=== PATIENT | female | born 1950 | race African-American/Black ===

== ENCOUNTER 2022-11-09 11:42 | Outpatient (CLI) | payer MEDICARE, SELFPAY ==
--- NOTE | ~2022-11-09 | MM_ITS ---
EXAMINATION: MM screening elis BI w avery HISTORY: Screening TECHNIQUE: Craniocaudal and mediolateral oblique 3-D tomosynthesis images were obtained and synthetic 2-D images were generated. CAD analysis was submitted and interpreted. COMPARISON: No prior mammogram is available for comparison at this institution. BREAST PARENCHYMAL COMPOSITION: The breasts are heterogeneously dense, which may obscure small masses . FINDINGS: There is focal asymmetry inferiorly in the left breast on MLO view. There are no suspicious masses, calcifications or architectural distortion in the right breast to suggest malignancy. IMPRESSION: 1. Focal left breast asymmetry inferiorly on MLO view. 2. Comparison outside mammograms recommended. BI-RADS Category 0: Incomplete: Needs additional imaging evaluation. Reviewed, dictated and finalized at location A.
== END 2022-11-09 11:43 | disposition home or self-care (01) ==
PROVIDERS: Visit Provider Family Medicine
DX: Z12.31 Encounter for screening mammogram for malignant neoplasm of breast (principal); R92.8 Other abnormal and inconclusive findings on diagnostic imaging of breast
CPT/HCPCS: 77063; 77067

== ENCOUNTER 2022-12-09 12:26 | Outpatient (CLI) | payer MEDICARE, SELFPAY ==
--- NOTE | ~2022-12-09 | MM_ITS ---
EXAMINATION: MM diagnostic elis LT w avery HISTORY: Left breast asymmetry on screening mammogram TECHNIQUE: Additional 3-D tomosynthesis images of the left breast were performed and synthetic 2-D im ages were generated. CAD analysis was submitted and interpreted. COMPARISON: 11/09/2022, 05/28/2018, 05/27/2017 FINDINGS: There is a return to baseline fibroglandular appearance with spot compression of the left b reast in the area questioned on screening mammogram. IMPRESSION: 1. No mammographic evidence of malignancy. 2. Recommend routine screening mammography in one year. BI-RADS Category 1: Negative Reviewed, dictated and finalized at location A.
== END 2022-12-09 12:27 | disposition home or self-care (01) ==
PROVIDERS: Visit Provider Nurse Practitioner Family
DX: R92.8 Other abnormal and inconclusive findings on diagnostic imaging of breast (principal)
CPT/HCPCS: 77061; 77065; G0279

== ENCOUNTER 2025-05-07 12:02 | Emergency (ER) | payer MEDICARE, SELFPAY ==
--- NOTE | ~2025-05-07 | CT_ITS ---
EXAMINATION: CT lumbar spine wo con COMPARISON: None HISTORY: back/buttock pain after fall TECHNIQUE: Axial images were obtained through the spine without IV contrast. Coronal, sagittal reconstruction images were obtained from the axial views. CT scan performed using dose optimization techniques including the following automated exposure control; adjustment of mA and/or kV; use of iterative reconstruction technique. Automatic exposure control was used to reduce radiation dose. Permanent radiation dose record is archived to PACS. FINDINGS: Remote appearing compression fracture noted of T12 and L1 with loss of height of L1 50%. There is an acute superior endplate fracture of L1, there is abnormal density in the body of L1, underlying pathologic fracture is not excluded. Moderate loss of disc height at T11-12, T12-L1 and L4-5 with moderate canal and foraminal stenosis. Soft tissues unremarkable. Impression: 1. Acute superior endplate fracture of L1 superimposed upon chronic compression fracture. Underlying pathologic lesion suspected. Contrast-enhanced MRI is suggested Reviewed, dictated and finalized at location A. Impression: 1. Acute superior endplate fracture of L1 superimposed upon chronic compression fracture. Underlying pathologic lesion suspected. Contrast-enhanced MRI is sug gested
--- NOTE | ~2025-05-07 | CT_ITS ---
EXAMINATION: CT abdomen pelvis wo con, 05/07/2025 15:10 CDT HISTORY: epigastric/RUQ/RLQ pain after GLF COMPARISON: No comparisons available. TECHNIQUE: CT scan of the abdomen and pelvis was performed without IV contrast. One or more of the following dose reduction techniques were used: automated exposure control, adjustment of the mA and/or kV according to patient size, use of iterative reconstruction technique. Unless otherwise stated, incidental findings do not require dedicated follow up imaging FINDINGS: CT abdomen: LUNG BASES: The lung bases are clear. The visualized portions of the heart and pericardium are unremarkable. LIVER: Pneumobilia throughout the left and right lobes of the liver. SPLEEN: Unremarkable, no splenomegaly. KIDNEYS: Right Kidney: Unremarkable. No calculi. No hydronephrosis. Left Kidney: Unremarkable. No calculi. No hydronephrosis ADRENAL GLANDS: Unremarkable. PANCREAS: Severe pancreatic atrophy. GALLBLADDER/BILIARY: Postcholecystectomy. STOMACH AND ESOPHAGUS: Moderate hiatal hernia. BOWEL/MESENTERY: Moderate fecal content, no colitis or diverticulitis. Appendix normal. Mesentery normal. No dilated small bowel loops. ADENOPATHY/RETROPERITONEUM: No lymphadenopathy. AORTA/VASCULATURE: Normal caliber aorta. FREE FLUID OR FREE AIR: No free fluid.. CT pelvis: SOLID ORGANS/REPRODUCTIVE: Post hysterectomy. No adnexal mass. BLADDER: Within normal limits. OSSEOUS STRUCTURES: No acute osseous abnormality.No suspicious lesions. OVERLYING SOFT TISSUES: Unremarkable. IMPRESSION: 1. No etiology to explain the patient's epigastric pain. Incidental findings above Reviewed, dictated and finalized at location A. IMPRESSION: 1. No etiology to explain the patient's epigastric pain. Incidental findings ab ove
--- NOTE | ~2025-05-07 | CT_ITS ---
EXAMINATION: CT cervical spine wo con COMPARISON: None HISTORY: fall TECHNIQUE: Axial images were obtained through the spine without IV contrast. Coronal, sagittal reconstruction images were obtained from the axial views. CT scan performed using dose optimization techniques including the following automated exposure control; adjustment of mA and/or kV; use of iterative reconstruction technique. Automatic exposure control was used to reduce radiation dose. Permanent radiation dose record is archived to PACS. FINDINGS: Grade 1 anterolisthesis of C3 on C4 and C4-C5, no fracture is identified. Moderate loss of disc height at C5-6. Soft tissues unremarkable. Impression: No acute abnormality. Reviewed, dictated and finalized at location A. Impression: No acute abnormality.
--- NOTE | ~2025-05-07 | CT_ITS ---
EXAMINATION: CT brain yasmine echols, 05/07/2025 15:10 CDT HISTORY: fall COMPARISON: No comparisons available. Technique: Axial images obtained of the brain without contrast. One or more of the following dose reduction techniques were used: automated exposure control, adjustment of the mA and/or kV according to patient size, use of iterative reconstruction technique. Findings: No acute infarct or hemorrhage. No midline shift or mass effect. No extra-axial fluid collections. Mastoid air cells unremarkable. Sinuses and orbits unremarkable. No acute fracture. Right-sided INSURANCE LOSS CONTROL SURVEYOR shunt terminates in the inferior third ventricle with a piece of a second shunt noted which is intracranial in location terminating in the left lateral ventricle, there is no hydrocephalus. Impression: 1.No acute intracranial abnormality. Reviewed, dictated and finalized at location A. Impression: 1.No acute intracranial abnormality.
--- OUTSIDE RECORDS SUMMARY | 2025-05-07 12:04 | XMS_ITS | Clinical Summary ---
Author Organization [facility] Address [address] [place] [id number] Care Team Providers Care Recovery Operator Name Role Phone Isa Wright PUMPER GAGER Primary Care Provider [phone] Allergies Active Allergy Reactions Criticality Noted Date Comments Codeine Chest pressure High 01/10/2010 Chest tightness Medications alendronate (FOSAMAX) 70 MG tablet Take 1 tablet (70 mg total) by mouth every 7 days. 5 Active aspirin EC 81 MG tablet aspirin 81 mg tablet,delaye d release TAKE 1 TABLET BY MOUTH ONCE DAILY Active Cod Liver Oil w/Vit A & D Cap Take 1,000 mg by mouth. Active metFORMIN ER (GLUCOPHAGE-XR) 500 MG 24 hr tablet Take 1 tablet (500 mg total) by mouth daily with breakfast. 5 Active memantine (NAMENDA) 10 MG tablet Take 1 tablet (10 mg total) by mouth 2 (two) times daily. Active melatonin 3 MG tablet Take 1 tablet (3 mg total) by mouth. Active lisinopril (PRINIVIL) 2.5 MG tablet Take 1 tablet (2.5 mg total) by mouth daily. 5 Active TRESIBA FLEXTOUCH 200 UNIT/ML injection (PEN) Inject 12 Units into the skin 2 (two) times daily. 5 Active Glucose Blood (ONETOUCH ULTRA TEST) test strip USE 1 STRIP TO CHECK GLUCOSE THREE TIMES DAILY DIRECTED Active ibuprofen (MOTRIN) 800 MG tablet Take 1 tablet (800 mg total) by mouth every 8 (eight) hours as needed. 5 Active loratadine (CLARITIN) 10 MG tabletIndication s:Allergic rhinitis, unspecified seasonality, unspecified trigger Take 1 tablet (10 mg total) by mouth daily. 90 tablet 3 Active Active Problems No known active problems Encounters Date Type Department Care Team Description 03/02/2025 Results Follow-Up [facility] [address] [place] [address] Isa Wright NP HEMOGLOBIN, GLYCOSYLATED, TSH W/REFLEX, LIPID PANEL, Additional followed-up results: 3 03/01/2025 9:30 AM CDT Laboratory Only [facility] [address] [place] [address] Isa Wright NP 03/01/2025 8:40 AM CDT Office Visit [facility] [address] [place] [phone] Isa Wright NP New Patient (Pt. Here today as a new patient to establish with Isa Wright NP. She was seeing a PCP in [place] through [facility]. She is going to be living at [facility] in [place].); Sleep Problem (Cannot fall asleep. She takes Melatonin- but does not seem like it helps. Daughter states that her mom worries that the family is taking money from her or taking her things, even though they are not. ); Ear Concern (Daughter states she has decreased hearing in both ears. ); Diabetes (Pt. States her sugar was 241 this AM when she woke up. Daughter states it is never that high- she does not think that is correct.) 03/01/2025 Scan [employer] HEALTH INFO SRVCS Scanned, [facility] 03/01/2025 Travel from Last 3 Months Immunizations Immunization Administration Dates Next Due COVID-19 Vaccine (Generic) 10/23/2020 Fluzone High Dose (IIV, triv alent, 0.5mL) 06/08/2024,06/04/2019 Fluzone High Dose - >Age 65 (Prefilled Syringe) 08/25/2022,06/09/2022,08/25/2021,2019 Influenza (Generic) 06/23/2023, 7,06/22/2014,2012 Influenza Adult (Generic) 05/29/2021,05/25/2020, 05/25/2019 PFIZER COVID-19 (12+) MRNA, LNP-S, PF, AIMEE-SUCROSE, 30 MCG/0.3 ML (COMIRNATY) 07/01/2023 Pneumococcal (Pneumovax 23) 11/04/2017, 3 Pneumococcal (Prevnar 13) 09/13/2016 Td, Adsorbed, Preservative F ree, Adult Use, Lf Unspecified 07/24/2019 Zoster (Zostavax) 22370 Unt/0.65Ml 09/22/2016, Family History Medical History Relation Comments Dementia Brother 1 Heart Brother 1 Diabetes Mother Dementia Sister 1 Relation Status Comments Brother 1 Alive Brother 2 Alive Brother 3 Alive Father Mother Sister 1 Alive Sister 2 Alive Sister 3 Alive Sister 4 Alive Social History Tobacco Use Types Packs/Day Years Used Date Smoking Tobacco: Former Cigarettes Passive Smoke Exposure: Past Smokeless Tobacco: Never Tobacco Cessation:Counseling Given: No Alcohol Use Standard Drinks/Week Comments Not Currently 0 (1 standard drink = 0.6 oz pur e alcohol) PHQ-2 Answer Date Recorded Patient Health Questionnaire-2 Score 3 03/01/2025 Comments No Sex and Gender Information Value Date Recorded Sex Assigned at Not on file Legal Sex Female 1:36 PM CDT Gender Identity Not on file Sexual Orientation Not on file Last Filed Vital Signs Vital Sign Reading Time Taken Comments Blood Pressure 108/67 03/01/2025 8:31 AM CDT Pulse 94 03/01/2025 8:31 AM CDT Temperature 36.6 C (97.8 F) 03/01/2025 8:31 AM CDT Respiratory Rate 18 03/01/2025 8:31 AM CDT Oxygen Saturation 98% 03/01/2025 8:31 AM CDT Inhaled Oxygen Concentration - - Weight 64.7 kg (142 lb 9.6 oz) 03/01/2025 8:31 A M CDT Height 158.8 cm (5' 2.5) 03/01/2025 8:31 AM CDT Body Mass Index 25.67 03/01/2025 8:31 AM CDT Plan of Treatment Health Maintenance Due Date Last Done Comments Colorectal Cancer Screening Colonoscopy (10 Years) 1950 Kidney Health Evaluation 1950 Diabetes: Retinopathy Eye Exam 1969 Hepatitis C 1969 RSV Immunization or 60+ Years (1 - Risk 60-74 years 1-dose series) 2011 Annual Medicare Wellness Visit 2016 Dexa Scan (General) 2016 Zoster Vaccines (2 of 3) 11/17/2016 09/22/2016, 08/26 DTaP, Tdap and Td Vaccines (1 - Tdap) 07/25/2019 07/24/2019 Mammogram Screening 05/28/2020 05/28/2018 COVID-19 Vaccine ( season) 2025 06/08/2024, 07/01/2023, 06/09/2022, Additional history exists Hemoglobin A1C 09/01/2025 03/01/2025, 04/2025, 02/20/2024, Additional history exists Lipid Panel 03/01/2026 03/01/2025 Pneumococcal Vaccine: 50+ Years Completed 11/04/2017, 09/13/2016, 06/25/2013 PHQ-2 (Physician [place]) Completed 03/01/2025 Meningococcal B Vaccine Aged Out No l onger eligible based on patient's age to complete this topic Meningococcal Vaccine Aged Out No natasha rosanna eligible based on patient's age to complete this topic RSV Immunizations Under 20 Months Aged Out No longer eligible based on patient's age to complete this topic Procedures Procedure Name Priority Date/Time Associated Diagnosis Comments QUANTIFERON - TB GOLD PLUS, 1T Routine 03/01/2025 9:54 AM CDT CBC W/DIFF AUTOMATED Routine 03/01/2025 9:49 AM CDT Moderate episode of recurrent major depressive disorder (CMS/HCC) HEMOGLOBIN, GLYCOSYLATED Routine 03/01/2025 9:49 AM CDT Type 2 diabetes mellitus without complication, with long-term current use of insulin (CMS/HCC HHS/HCC) COMPREHENSIVE METABOLIC PANEL Routine 03/01/2025 9:48 AM CDT Screening, lipid LIPID PANEL Routine 03/01/2025 9:48 AM CDT Screening, lipid TSH W/REFLEX Routine 03/01/2025 9:48 AM CDT Screening for thyroid disorder COLLECTION VENOUS BLOOD VENIPUNCTURE Routine 03/01/2025 9:40 AM CDT Screening, lipid from Last 3 Months Results * QUANTIFERON - TB GOLD PLUS, 1T (03/01/2025 9:54 AM CDT) Pathologist [facility] TB QUANTIFERON NEGATIVE NEGATIVE Peg [employer] Comment: Negative test result. M. tuberculosis complex infection unlikely. NIL (TB) 0.09 IU/mL [facility] [employer] [facility] MITOGEN NIL 8.46 IU/mL [facility] [employer] [facility] TB1 AG MINUS NIL 0.00 IU/mL [facility] TB2 AG MINUS NIL 0.01 IU/mL [facility] Comment: The Nil tube value reflects the background interferon gamma immune response of the patient's blood sample. This value has been subtracted from the patient's displayed TB and Mitogen results. Lower than expected results with the Mitogen tube prevent false-negative Quantiferon readings by detecting a patient with a potential immune suppressive condition and/or suboptimal pre-analytical specimen handling. The TB1 Antigen tube is coated with the M. tuberculosis-specific antigens designed to elicit responses from TB antigen primed CD4+ helper T-lymphocytes. The TB2 Antigen tube is coated with the M. tuberculosis-specific antigens designed to elicit responses from TB antigen primed CD4+ helper and CD8+ cytotoxic T-lymphocytes. For additional information, please refer to https://education.24/7 Card.e-volo/faq/YZC690 (This link is being provided for informational/ educational purposes only.) 03/01/2025 9:54 AM CDT 03/02/2025 10:42 AM CDT Narrative Resulting Agency Comment Performing Organization Information: Site ID: [id number] Name: [facility] Address: [address] [address] Director: Jefry Alcazar MD Isa Wright NP LABORATORY Final Result [facility] [id number] [facility] [address], * (ABNORMAL) HEMOGLOBIN, GLYCOSYLATED (03/01/2025 9:49 AM CDT) HGB A1C 7.2(H) 4.5 - 6.2 % 03/01/2025 10:48 PM CDT [facility] ESTIMATED AVG GLUCOSE 160(H) 74 - 106 MG/DL 03/01/2025 10:48 PM CDT [facility] 03/01/2025 9:49 AM CDT Isa Wright NP LABORATORY Final Result [facility] [address] [place] [address], * (ABNORMAL) CBC W/DIFF AUTOMATED (03/01/2025 9:49 AM CDT) WBC 10.71 4.00 - 10.80 x10'3/uL 03/01/2025 10:11 PM CDT [facility] RBC 5.22 4.10 - 5.40 x10'6/uL 03/01/2025 10:11 PM CDT [facility] HGB 12.7 12.0 - 16.0 G/DL 03/01/2025 10:11 PM CDT [facility] HCT 40.2 36.0 - 47.0 % 03/01/2025 10:11 PM CDT [facility] MCV 77.0(L) 78.0 - 100.0 FL 03/01/2025 10:11 PM CDT [facility] MCH 24.3(L) 27.0 - 31.0 PG 03/01/2025 10:11 PM CDT [facility] MCHC 31.6(L) 33.0 - 36.0 G/DL 03/01/2025 10:11 PM CDT [facility] RDW 15.1(H) 11.5 - 14.5 % 03/01/2025 10:11 PM CDT [facility] PLT 300 150 - 350 x10'3/uL 03/01/2025 10:11 PM CDT [facility] MPV 9.9 7.4 - 10.4 FL 03/01/2025 10:11 PM CDT [facility] IMMATURE GRANS % 0.2 % 03/01/20 10:12 PM CDT [facility] NEUTROPHILS % 49.7 % 03/01/2025 10:12 PM CDT [facility] EOSINOPHILS % 1.7 % 03/01/2025 10:12 PM CDT [facility] BASOPHILS % 0.5 % 03/01/2025 10:12 PM CDT [facility] LYMPHOCYTES % 42.4 % 03/01/2025 10:12 PM CDT [facility] MONOCYTES % 5.5 % 03/01/2025 10:12 PM CDT [facility] ABS. IMMATURE GRANULOCYTES 0.02 0.00 - 0.03 x10'3/uL 03/01/2025 10:12 PM CDT [facility] ABS. NEUTROPHILS 5.33 1.60 - 8.30 x10'3/uL 03/01/2025 10:12 PM CDT [facility] ABS. EOSINOPHILS 0.18 0.00 - 0.40 x10'3/uL 03/01/2025 10:12 PM CDT [facility] ABS. BASOPHILS 0.05 0.00 - 0.20 x10'3/uL 03/01/2025 10:12 PM CDT [facility] ABS. LYMPHOCYTES 4.54 0.80 - 4.70 x10'3/uL 03/01/2025 10:12 PM CDT [facility] ABS. MONOCYTES 0.59 0.00 - 1.50 x10'3/uL 03/01/2025 10:12 PM CDT [facility] RBC MORPHOLOGY ABNORMAL 03/01/2025 10:12 PM CDT [facility] REACTIVE LYMPH INCREASED 03/01/2025 10:12 PM CDT [facility] PLT MORPH. NORMAL 03/01/2025 10:12 PM CDT [facility] PLT EST. NORMAL x10'3/uL 03/01/2025 10:12 PM CDT [facility] MICRO 1+ 03/01/2025 10:12 PM CDT [facility] POIKLO 1+ 03/01/2025 10:12 PM CDT [facility] TARGET CELLS 1+ 03/01/2025 10:12 PM CDT [facility] DIFFERENTIAL TYPE AUTO-DIFF VERIFIED BY BLOOD SMEAR SCAN. 03/01/2025 10:12 PM CDT [facility] 03/01/2025 9:49 AM CDT us Isa Wright NP LABORATORY Final Result Performing Organization Address [facility]/ZIP Co de Phone Number [facility] [address] [place] [address], [place] [phone] * TSH W/REFLEX (03/01/2025 9:48 AM CDT) TSH 1.281 0.358 - 3.740 uIU/ML 03/02/2025 12:33 PM CDT [facility] 03/01/2025 9:48 AM CDT us Isa Wright NP LABORATORY Final Result Performing Organization Address City/[facility]/ZIP Co de Phone Number [facility] [address] [place] [address], * (ABNORMAL) COMPREHENSIVE METABOLIC PANEL (03/01/2025 9:48 AM CDT) [facility] SODIUM S/P/B 140 136 - 145 MMOL/L 03/02/2025 12:33 PM CDT -[facility] POTASSIUM S/P/B 4.7 3.5 - 5.1 MMOL/L 03/02/2025 12:33 PM CDT -[facility] CHLORIDE S/P/B 102 98 - 107 MMOL/L 03/02/2025 12:33 PM CDT -[facility] CO2 27.8 21 - 32 MMOL/L 03/02/2025 12:33 PM CDT MG-[facility] GLUCOSE 119(H) 70 - 99 MG/DL 03/02/2025 12:33 PM CDT -[facility] BUN 18 7 - 18 MG/DL 03/02/2025 12:33 PM CDT -[facility] CREATININE S/P/B 0.72 0.55 - 1.02 MG/DL 03/02/2025 12:33 PM CDT -[facility] CALCIUM S/P/B 10.1 8.4 - 10.5 MG/DL 03/02/2025 12:33 PM CDT -[facility] BILIRUBIN TOTAL S/P/B 0.3 0.2 - 1.0 MG/DL 03/02/2025 12:33 PM CDT -[facility] ALKALINE PHOSPHATASE S/P/B 61 55 - 142 U/L 03/02/2025 12:33 PM CDT -[facility] AST 19 15 - 37 U/L 03/02/2025 12:33 PM CDT -[facility] ALT 36 14 - 59 U/L 03/02/2025 12:33 PM CDT -[facility] TOTAL PROTEIN S/P/B 7.2 6.4 - 8.2 G/DL 03/02/2025 12:33 PM CDT [facility] ALBUMIN S/P/B 3.9 3.4 - 5.0 G/DL 03/02/2025 12:33 PM CDT [facility] ANION GAP 10.2 5 - 15 MMOL/L 03/02/2025 12:33 PM CDT [facility] Comment:REFERENCE RANGE NOT ESTABLISHED OSMOLALITY (CALC) 293 MOSM/KG 025 12:33 PM CDT [facility] Comment:REFERENCE RANGE NOT ESTABLISHED GFR ESTIMATE 88(L) >90 ML/MIN/1. 73 M2 03/02/2025 12:33 PM CDT [facility] GFR NOTES GFR REFERENCE S: 03/02/2025 12:33 PM CDT [facility] Comment: THE ESTIMATED GFR IS CALCULATED USING THE 2020 CKD-EPI EQUATION. THE FOLLOWING CATEGORIES FOR GRADING RENAL FUNCTION ARE RECOMMENDED BY THE INTERNATIONAL SOCIETY OF NEPHROLOGY (KDIGO 2012 CLINICAL PRACTICE GUIDELINE). G1,NORMAL OR HIGH: >89 ml/min/1.73 m2 G2,MILDLY DECREASED: 60-89 ml/min/1.73 m2 G3A,MILDLY TO MODERATELY DECREASED: 45-59 ml/min/1.73 m2 G3B,MODERATELY TO SEVERELY DECREASED: 30-44 ml/min/1.73 m2 G4,SEVERELY DECREASED: 15-29 ml/min/1.73 m2 G5,KIDNEY FAILURE: <15 ml/min/1.73 m2 03/01/2025 9:48 AM CDT us Isa Wright NP LABORATORY Final Result [facility] [place] [address] [place] [address], * (ABNORMAL) LIPID PANEL (03/01/2025 9:48 AM CDT) CHOLESTEROL 200(H) <200 MG/DL 03/02/2025 12:33 PM CDT [facility] TRIGLYCERIDES 63 <150 MG/DL 03/02/2025 12:33 PM CDT [facility] HDL 82 >40 MG/DL 03/02/2025 12:33 PM CDT [facility] LDL-C 105(H) <100 MG/DL 03/02/2025 12:33 PM CDT [facility] VLDL CALCULATION 13 5 - 28 MG/DL 03/02/2025 12:33 PM CDT [facility] CHOL/HDL RATIO 2.4 0.0 - 4.0 03/02/2025 12:33 PM CDT [facility] LDL/HDL 1.3 0.41 - 2.13 03/02/2025 12:33 PM CDT [facility] NON HDL CHOLESTEROL 118 <140 MG/DL 03/02/2025 12:33 PM CDT [facility] 03/01/2025 9:48 AM CDT us Isa Wright NP LABORATORY Final Result [facility] [address] [place] [address], [place] [phone] from Last 3 Months Insurance [employer] Care Teams Recovery Operator Relationship Specialty Start Date End Date Isa Wright, PUMPER GAGER [address] [place] [address] PCP - General Nurse Practitioner Family 02/22/25
--- OUTSIDE RECORDS SUMMARY | 2025-05-07 12:04 | XMS_ITS | Clinical Summary ---
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 mL/min/1.73m2 Moderately to severely decreased 30 - 44 mL/min/1.73m2 Severely decreased 15 - 29 mL/min/1.73m2 Kidney Failure < 15 mL/min/1.73m2 *Relative to young adult level Estimated glomerular filtration rate is determined by the 2020 CKD-EPI equation recommended by the National Kidney Foundation (A Unifying Approach to GFR Estimation: Recommendations of the NKF-ASK Task Force on Reassessing the Inclusion of Race in Diagnosing Kidney Disease, JASN 2020). The CKD-EPI equation should not be used for patients with unstable renal function and has not been validated in children and those over 70. Current interpretive data was last reviewed 2021. Blood 09/02/2024 9:00 AM LINUX UNIX ENGINEER 09/02/2024 4:22 PM LINUX UNIX ENGINEER us Serafin Bernstein MD LAB BLOOD ORDERABLES Final Result CATERINA RAPHAEL [address] Department [place] [address] * Lipid panel (09/02/2024 9:00 AM LINUX UNIX ENGINEER) Cholesterol 176 30 - 199 mg/dL Comment: Interpretive Data Ages < or = 19 years Acceptable: <170 mg/dL Borderline high: 170-199 mg/dL High: >or= 200 mg/dL Ages > or = 20 years Desirable: <200 mg/dL Borderline high: 200-239 mg/dL High: >or= 240 mg/dL Literature References: 1. Expert Panel on Integrated Guidelines for Cardiovascular Health and Risk Reduction in Children and Adolescents. Pediatrics 2011;128:S213 2. NCEP Expert Panel. Circulation 2004;110:227 Current Interpretive Data was last revised on 2018. Triglycerides 56 <=149 mg/dL CATERINA RAPHAEL Comment: Interpretive Data Ages < or = 9 years Acceptable: <75 mg/dL Borderline high: 75-99 mg/dL High: >or= 100 mg/dL Ages 10 to 20 years Acceptable: <90 mg/dL Borderline high: 90-129 mg/dL High: >or= 130 mg/dL Ages > or = 20 years Desirable: <150 mg/dL Borderline high: 150-199 mg/dL High: 200-499 mg/dL Very high: >or= 499 mg/dL Literature References: 1. Expert Panel on Integrated Guidelines for Cardiovascular Health and Risk Reduction in Children and Adolescents. Pediatrics 2011;128:S213 2. NCEP Expert Panel. Circulation 2004;110:227 Current Interpretive Data was last revised on 2018. HDL 66 >=40 mg/dL CATERINA Comment: Interpretive Data Ages < or = 19 years Acceptable: >45 mg/dL Borderline low: 40-45 mg/dL Low: <40 mg/dL Ages > or = 20 years Desirable: >or= 60 mg/dL Low: <40 mg/dL Literature References: 1. Expert Panel on Integrated Guidelines for Cardiovascular Health and Risk Reduction in Children and Adolescents. Pediatrics 2011;128:S213 2. NCEP Expert Panel. Circulation 2004;110:227 Current Interpretive Data was last revised on 2018. LDL, calculated 99 <=129 mg/dL CATERINA Comment: Interpretive Data Ages < or = 19 years Acceptable: <110 mg/dL Borderline high: 110-129 mg/dL High: >or= 130 mg/dL Ages > or = 20 years Optimal: <100 mg/dL Near optimal: 100-129 mg/dL Borderline high: 130-159 mg/dL High: >160 mg/dL Calculated using the Hank LDL-C estimating equation. This equation was implemented on 2024. Prior to this date LDL-C was estimated using the Friedewald equation. Literature References: 1. Expert Panel on Integrated Guidelines for Cardiovascular Health and Risk Reduction in Children and Adolescents. Pediatrics 2011;128:S213 2. NCEP Expert Panel. Circulation 2004;110:227 3. Hank Das. RODOLFO Cardiol. 2020 December 23;5(5):540-548. doi: 10.1001/jamacardio.2020.0013 Current Interpretive Data was last revised on 2024. Non-HDL Cholesterol 110 mg/dL CATERINA Comment: Interpretive Data Ages < or = 19 years Acceptable: <120 mg/dL Borderline high: 120-144 mg/dL High: >145 mg/dL Ages > or = 20 years When triglycerides are >200 mg/dL, Non-HDL cholesterol is a secondary target of therapy with treatment goals that are 30 mg/dL greater than the LDL cholesterol target. Literature References: 1. Expert Panel on Integrated Guidelines for Cardiovascular Health and Risk Reduction in Children and Adolescents. Pediatrics 2011;128:S213 2. NCEP Expert Panel. Circulation 2004;110:227 Current Interpretive Data was last revised on 2018. Chol/HDL ratio 3 [facility] Blood 09/02/2024 9:00 AM LINUX UNIX ENGINEER 09/02/2024 4:12 PM LINUX UNIX ENGINEER Result [facility] Serafin Bernstein MD LAB BLOOD ORDERABLES Final Result CATERINA [address] Department [place] [address] * HM MAMMOGRAPHY (12/09/2022) Mammography Normal [facility] Provider HEALTH MAINTENANCE Final Result * Diabetic Eye Exam (11/17/2021) Result [facility] Provider HEALTH MAINTENANCE Final Result * Hepatitis C antibody (10/31/2021 3:21 PM LINUX UNIX ENGINEER) Hep C Ab Nonreactive Nonreactive CATERINA Comment: Interpretive Data Nonreactive: Antibodies to HCV not detected. Does NOT exclude the possibility of recent exposure to HCV. Equivocal: Equivocal for HCV antibodies. Supplemental molecular testing will be automatically performed to determine infection status in accordance with current CDC screening recommendations. Reactive: Positive for HCV antibodies. This may represent current or past HCV infection. Supplemental molecular testing will be automatically performed to determine current infection status in accordance with current CDC screening recommendations. Interpretive data was last revised on 2019. Blood 10/31/2021 3:21 PM LINUX UNIX ENGINEER 10/31/2021 6:57 PM LINUX UNIX ENGINEER Serafin Bernstein MD LAB MICROBIOLOGY - GENERAL ORDERABLES Final Result Performing Organization Address City/State/ZIP Co va Phone Number CATERINA [id number] [facility] Department [place] [address] * COLONOSCOPY REPORT (09/03/2016) Anatomical Region Laterality Modality Other Narrative 09/03/2016 Ordered by an unspecified provider. Historical Provider GI PROCEDURE ORDERABLES F inal Result * BONE MINERAL DENSITY (07/02/2013) Anatomical Region Laterality Modality Radiographic Zoe ging Narrative 07/02/2013 Ordered by an unspecified provider. Historical Provider IMG DXA PROCEDURES Final Result from Last 3 Months or Most Recently Relevant to Health Maintenance Insurance [facility] Athletes' PerformanceRA [facility] Athletes' Performance [facility] Advance Directives For more information, please contact: [phone] Documents on File Type Date Recorded Patient Wharf Attendant Expl anation Power of Hand Spring Former 12/26/2022 9:09 AM Care Teams Behavioral Health Director Relationship Specialty Start Date End Date No, Physician 03/23/20
--- OUTSIDE RECORDS SUMMARY | 2025-05-07 12:04 | XMS_ITS | Clinical Summary ---
Author Organization [facility] [employer] Address [address] [place] [address] Care Team Providers Care Fusion Analyst Name Role Phone Serafin Bernstein MD Primary Care Provider [phone] Source Comments [facility],non-owned Affiliates and Associated Physician Practices is amultiple site organization consisting of ambulatory clinics and hospital sitesin [place], [place], [place] and [place]. This disclosure is being madepursuant to the Care Everywhere program and may not contain all information available regarding this patient. Last updated 18.[facility] [employer] Allergies Active Allergy Reactions Criticality Noted Date Comments Codeine 01/10/2010 Chest tightness Medications * Be aware that medications may not be up to date on this document. Alwaysverify current medications with the patient. glimepiride (AMARYL) 2 MG tablet Take 2 mg by mouth daily with breakfast. Active aspirin EC (Ecotrin) 81 MG tablet aspirin 81 mg tablet,delayed release TAKE 1 TABLET BY MOUTH ONCE DAILY 0 Active lisinopril (Prinivil; Zestril) 2.5 MG tablet once daily 0 Active alendronate (Fosamax) 70 MG tablet TAKE 1 TABLET BY MOUTH EVERY 7 DAYS. TAKE IN THE MORNING WITH A FULL GLASS OF WATER, ON AN EMPTY STOMACH AND DO NOT TAKE WITH ANYTHING ELSE BY MOUTH OR LIE DOWN FOR THE NEXT 30 MINUTES. 3 Active metFORMIN ER 24hr (Glucophage XR) 500 MG tablet Take 1 (one) tablet by mouth daily with breakfast 3 Active insulin aspart (NovoLOG) FlexPen Inject 12 (twelve) Units subcutaneously 0 Active insulin degludec (Tresiba FlexTouch) 200 UNIT/ML pen INJECT 10 UNITS SUBCUTANEOUSLY TWICE DAILY AFTER BREAKFAST AND DINNER 3 Active Tresiba FlexTouch 200 UNIT/ML pen INJECT 10 UNITS SUBCUTANEOUSLY TWICE DAILY AFTER BREAKFAST AND DINNER 3 Active blood glucose (Kroger Blood Glucose Test) test strip For daily blood glucose at-home testing 1ce daily. E11.65 2 Active Blood Glucose Monitoring Suppl (GlucTicketbudm Blood Glucose Monitor) SHANTANU For home glucose monitoring. E11.65 2 Active melatonin 3 MG tablet Take 1 (one) tablet by mouth at bedtime Active Cod Liver Oil 1000 MG Take 1,000 mg by mouth Active memantine (Namenda) 10 MG tablet Take 1 (one) tablet by mouth 2 times daily 180 tablet 3 4 Active citalopram (CeleXA) 20 MG tablet Take 1 (one) tablet by mouth once daily 4 Active QUEtiapine (SEROquel) 25 MG tablet Take 0.5 (one-half) tablet by mouth at bedtime 15 tablet 2 5 Active Active Problems Problem Noted Date Diagnosed Date Diabetes mellitus type II, c ontrolled, with no complications 01/10/2010 Lymphoma in remission 01/10/2010 HSV-1 infection 01/10/2010 Encounters Date Type Department Care Team Description 03/14/2025 11:00 AM CDT Office Visit [address] [place] [id number] Phil Garcia MD 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 (FLUAD QUADRIVALENT; 65Y+) (AIIV4) 05/29/2021 INFLUENZA VACCINE, HIGH-DOSE , QUADR. (FLUZONE HIGH-DOSE QUADRIVALENT; 65Y+), 0.7 ML (HD-IIV4) 05/27/2020 Family History Medical History Relation Name Comments CAD (Coronary Artery Disease) Brother 1 antonino Diabetes Brother 1 antonino CAD (Coronary Artery Disease) Brother 2 conrado Diabetes Brother 2 conrado CAD (Coronary Artery Disease) Brother 3 caroline Diabetes Brother 3 caroline Arthritis - Osteo Sister 2 charissa Seizures Sister 5 glinder Diabetes Sister 6 gloristine Relation Name Status Comments Brother 1 antonino Alive Brother 2 conrado Alive Brother 3 caroline Alive Father Alive Mother (Age 82) Sister 1 Gloristine Alive Sister 2 charissa Alive Sister 3 Glinder Alive Sister 4 yair Alive Sister 5 glinder Sister 6 gloristine Social History Tobacco Use Types Packs/Day Years Used Date Smoking Tobacco: Former Alcohol Use Standard Drinks/Week Comments No 0 (1 standard drink = 0.6 oz pur e alcohol) Comments No Sex and Gender Information Value Date Recorded Sex Assigned at Not on file Legal Sex Female 6:17 AM KNITTED GARMENT FINISHER Gender Identity Not on file Sexual Orientation Not on file Last Filed Vital Signs Vital Sign Reading Time Taken Comments Blood Pressure 126/82 03/14/2025 11:02 AM CDT Pulse 96 09/02/2024 11:29 AM KNITTED GARMENT FINISHER Temperature 36.2 C (97.2 F) 02/25/2024 9:17 AM CDT Respiratory Rate 18 08/04/2014 3:48 PM KNITTED GARMENT FINISHER Oxygen Saturation 96% 09/02/2024 11:29 AM KNITTED GARMENT FINISHER Inhaled Oxygen Concentration - - Weight 62.1 kg (137 lb) 03/14/2025 11:02 AM CDT Height 160 cm (5' 3) 09/02/2024 11:29 AM KNITTED GARMENT FINISHER Body Mass Index 24.27 09/02/2024 11:29 AM KNITTED GARMENT FINISHER Plan of Treatment Upcoming Encounters Date Type Department Care Team (Late st Contact Info) Description 09/16/2025 11:00 AM KNITTED GARMENT FINISHER Office Visit [facility] [address] [place] [address] Phil Garcia MD [address] [place] [address] Health Maintenance Due Date Last Done Comments COLOGUARD (AGES 45-75) - COLON CA SCREENING [address] COLONOGRAPHY - COLON CA SCREENING 1950 FIT - COLON CA SCREENING 1950 FLEX SIG - COLON CA SCREENING 1950 HEPATITIS C SCREENING 03/16/1969 DTAP/TDAP/TD VACCINES (1 - Tdap) 1970 PNEUMOCOCCAL VACCINE 50+ (1 of 2 - PCV) 1970 DIABETES-STATIN 1991 ZOSTER VACCINE (1 of 2) 2001 Respiratory Syncytial Virus (RSV) Vaccine Pt: or over 60 yrs (1 - Risk 60-74 years 1-dose series) 2011 COLONOSCOPY - COLON CA SCREENING 08/25/2018 08/25/2008 Colorectal Cancer Screening 08/25/2018 DIABETES RETINOPATHY SCREENING 05/27/2020 DIABETES-FOOT EXAM WITH MONOFILAMENT 05/27/2020 MAMMOGRAM 05/28/2020 05/28/2018, 10/2016, 06/27/2016, Additional history exists DEPRESSION SCREENING 08/25/2024 DIABETES - URINE PROTEIN SCREENING 08/25/2024 MEDICARE AWV CALENDAR YEAR 2024 COVID-19 VACCINE ( season) 2025 06/08/2021, 11/08/2020, 10/17/2020 INFLUENZA VACCINE (#1) 2025 , 06/23/2023, 05/29/2021, Additional history exists DIABETES-HGB A1C 09/01/2025 03/01/2025, 04/2025, 02/20/2024, Additional history exists DIABETES-SERUM CREATININE 03/01/20262024, 03/01/2025, 06/16/2023, Additional history exists BONE DENSITY TESTING Completed 07/02/2013 HEPATITIS B VACCINE Aged Out No longe r eligible based on patient's age to complete this topic HIB VACCINE Aged Out No longer eligi ble based on patient's age to complete this topic HPV VACCINE Aged Out No longer eligi ble based on patient's age to complete this topic MENINGOCOCCAL (Group B) VACCINE SHARED DECISION-MAKING Aged Out No longer eligible based on patient's age to complete this topic MENINGOCOCCAL GROUPS A/C/Y/W VACCINE Aged Out No longer eligible based on patient's age to complete this topic Procedures Procedure Name Priority Date/Time Associated Diagnosis Comments CREATININE - POCT INTERFACED Routine 06/16/2023 11:25 AM CDT HEMOGLOBIN A1C Routine 01/16/2010 8:33 AM CDT Diabetes Mellitus Type II, Controlled, with no Complications from Last 3 Months or Most Recently Relevant to Health Maintenance Results * (ABNORMAL) CREATININE - POCT INTERFACED (06/16/2023 11:25 AM CDT) Creatinine POCT 0.49(L) 0.70 - 1.20 mg/dL 06/16/2023 12:00 PM CDT [facility] eGFR 100 >=90 mL/min/1.7 3 m2 06/16/2023 12:00 PM CDT [facility] Blood BLOOD SPECIMEN / Unknown 06/16/2023 11:25 AM CDT 06/16/2023 12:00 PM CDT us Phil Garcia MD LAB - POINT OF CARE ORDERABL ES Final Result Performing Organization Address City/[facility]/ZIP Co de Phone Number [facility] [address] [phone] * (ABNORMAL) HEMOGLOBIN A1C (01/16/2010 8:33 AM CDT) Hemoglobin A1c 6.7(H) 4.8 - 5.6 % [facility] INSURANCE BILL Comment: Increased risk for diabetes: 5.7 - 6.4 Diabetes: >6.4 Glycemic control for adults with diabetes: <7.0 BLOOD SPECIMEN / Unknown 01/16/2010 8:33 AM CDT 01/16/2010 8:39 PM CDT Narrative Resulting Agency Comment [facility] [address] [phone] us Jony Franklin MD LAB - CHEMISTRY ORDERABLES F inal Result Performing Organization Address City/[facility]/ZIP Co de Phone Number [facility] INSURANCE BILL [address] [place] [address] from Last 3 Months or Most Recently Relevant to Health Maintenance Insurance AET[employer] AETNA MEDICARE [facility] Care Teams Fusion Analyst Relationship Specialty Start Date End Date Serafin Bernstein MD [address] [place] [address] PCP - General Family Medicine 08/15/23
--- OUTSIDE RECORDS SUMMARY | 2025-05-07 12:04 | XMS_ITS ---
Author Organization [facility] Address [address] [place] [address] Care Team Providers Care Professor Of Physical Education Name Role Phone Serafin Bernstein MD Primary Care Provider [phone] Active Problems Problem Noted Date Diagnosed Date Diabetes mellitus type II, c ontrolled, with no complications 01/10/2010 Lymphoma in remission 01/10/2010 HSV-1 infection 01/10/2010 Current Treatment and Therapy Plans No current plan information found. Past Treatment and Therapy Plans No past plan information found. Lifetime Dose Tracking * Chemical Lifetime Dose Automatic Entry Manual Entr y Dose Length Product 1,539 mGy-cm 1,539 mGy-cm 0 mGy-cm
--- OUTSIDE RECORDS SUMMARY | 2025-05-07 12:04 | XMS_ITS ---
Author Organization [facility] Address [address] [place] [address] Care Team Providers Care Specialized Developer Name Role Phone No, Physician Unavailable Active Problems Problem Noted Date Diagnosed Date [...] is actually going to be going to [place] to stay with her sister for possibly up to 4-5 months. Daughter states patient's sister is prepared to take care of her. Patient continues on Namenda Assessment & Plan (09/05/2023 10:21 AM JAVA DEVELOPER ARCHITECT): Patient continues to have difficulty sleeping. Daughter [...] (05/25/2020): Added automatically from request for surgery [id number] Assessment & Plan (02/20/2024 8:48 AM CDT): Reviewed screenings recommended. She will do mammogram when she gets back from visiting her sister. Does not wish to have any vaccinations today. Labs ordered today Assessment & Plan (11/02/2021 5:47 PM JAVA DEVELOPER ARCHITECT): A initial Medicare Annual Wellness Visit has [...] Hyperlipidemia associated with type 2 diabetes vijay penaellen 05/24/2020 Assessment & Plan (02/20/2024 8:47 AM CDT): Lipid abnormalities are stable, reviewed previous lipid [facility] in [facility]. Patient is not a statin therapy [...] 09/19/2017 Assessment & Plan (09/05/2023 10:18 AM JAVA DEVELOPER ARCHITECT): Worsening. Will increase citalopram to 20 mg [...] weeks. Assessment & Plan (09/19/2017 5:17 PM JAVA DEVELOPER ARCHITECT): Psychological condition is worsening. Continue current treatment [...] recheck hemoglobin A1c today. 6.. She has Adzillayle CGM. 7. Continues on Tresiba 10 units [...] hyperglycemia. Assessment & Plan (09/19/2017 5:15 PM JAVA DEVELOPER ARCHITECT): Diabetes is unchanged. Continue current treatment regimen. [...] no longer sees Oncology HSV-1 infection 01/10/2010 Current Treatment and Therapy Plans No current plan information found. Past Treatment and Therapy Plans No past plan information found. Lifetime Dose Tracking * Chemical Lifetime Dose Automatic Entry Manual Entr y DLP 779 mGycm 779 mGycm 0 mGycm Resolved Problems Problem Noted Date Diagnosed Date [...] (05/10/2019): Added automatically from request for surgery [id number] Yeast vaginitis 12/31/2018 09/05/2023 Fatigue due to [...] better. Assessment & Plan (07/30/2017 8:02 PM JAVA DEVELOPER ARCHITECT): Patient fell and landed on her left [...]
[2025-05-07 12:15] VITALS: BP 117/64; PULSE 93; RESP 16; TEMP 36.8; O2SAT 96
--- NOTE | 2025-05-07 14:20 | ED.FALL ---
HPI - Fall General Chief Complaint: Fall Stated Complaint: fall this AM Time Seen by Provider: 05/07/25 13:50 Source: patient and family Mode of arrival: ambulatory Limitations: no limitations History of Present Illness HPI Narrative: Patient presents after a fall this morning. Resides at [facility]. Usually uses a walker but wasn't using it this morning. Used the restroom and slipped while trying to get back into the bed, from a standing position while lifting her leg to get into bed. Landed on buttocks on wood floor. Now having low back pain and buttock pain. No paresthesiaa. No hip pain. No bowel/bladder incontinence. History of falls and daughter states she broke a rib 6 months ago and didn't complain at that time as being in as much pain as today. Also having epigastric pain radiating across to RUQ and LUQ. No syncope, no loss of consciousness. Not on anticoagulation. Did not strike her head. Received ibuprofen at the facility. 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 HEAD: Normocephalic, atraumatic. EYES: Non injected, non icteric ENT: Nares clear, no rhinorrhea or epistaxis. Gross auditory acuity intact. NECK: Supple. No meningismus. CHEST: Speaking in full sentences. No respiratory distress. HEART: Regular rate and rhythm. . ABDOMEN: Soft, nondistended. No rigidity or guarding. Not peritoneal Back: No TTP of midline spinous processes which are w/o bony stepoffs/obvious deformities. Mild TTP of paraspinal muscles. No TTP of bilateral buttocks. EXTREMITIES: Normal range of motion. No lower extremity edema. SKIN: Warm, dry, no rash. No ecchymosis throughout back or buttocks. NEURO: No focal deficits. Alert and oriented. Answering questions. Following commands. Normal speech without aphasia or dysarthria. Sensation intact to gross touch throughout including bilateral lower extremities. Able to stand and bear weight. Also able to lift herself from seated position to standing using her bilateral arms, though takes a few seconds. PSYCH: Normal mood and affect. Course Vital Signs Vital signs: Vital Signs Temperature 98.2 F 05/07/25 12:15 Pulse Rate 93 05/07/25 12:15 Respiratory Rate 16 05/07/25 12:15 Blood Pressure 117/64 05/07/25 12:15 Pulse Oximetry 96 05/07/25 12:15 Oxygen Delivery Room Air 05/07/25 12:15 Temperature 98.2 F 05/07/25 12:15 Pulse Rate 78 05/07/25 17:41 Respiratory Rate 16 05/07/25 17:41 Blood Pressure 132/84 05/07/25 17:41 Pulse Oximetry 98 05/07/25 17:41 Oxygen Delivery Room Air 05/07/25 12:15 MDM - Fall MDM Narrative Medical decision making narrative: Patient presents with low back pain and buttock pain after a fall while trying to get into bed this morning. Typically uses a walker but hadn't been this morning. Now also having epigasttric/upper abdominal pain. In the emergency department they are afebrile with vital signs within normal limits. Not on anticoagulation per patient or per review of medication list from facility. Mild leukocytosis and a microcytic anemia with no prior for comparison. Otherwise labs including urinalysis are reassuring. CT imaging as below. History of malignancy so pathology not excluded. Discussed with automation control integrator NSGY Dr Fernandes who recommends pain control and LSO brace (no need for TLSO given patient's height/weight/BMI) and obtaning MRI w/ and w/o contrast. Family and patient updated at bedside, verify understanding. Written Rx for brace put in chart but also Rx one to patient's pharmacy as DME. Provided [facility] contact info. Patient Rx APAP and ibuprofen (although states acetaminophen makes her feel jittery) in addition to oxy for breakthrough pain. Differential Diagnosis Differential diagnosis: Likely compression fracture and other (intra-abdominal pathology; tailbone fracture) Lab Data Attestation: I reviewed the patient's lab results. 05/07/25 14:51 05/07/25 14:51 Labs: Lab Results 05/07/25 05/07/25 Range/Units 14:51 15:01 WBC 12.4 H (4.5-10.0) K/mm3 RBC 4.78 (4.2-5.4) M/mm3 Hgb 11.6 L (12.0-15.0) g/dL Hct 36.9 L (37.0-47.0) % MCV 77.2 L (80-100) fl MCH 24.3 L (26-34) pg MCHC 31.4 L (32-36) g/dl RDW 15.0 H (11.5-14.5) % Plt Count 263 (150-375) k/mm3 MPV 8.3 (7.4-10.4) fl Immature Gran % (Auto) 0.2 (0-0.5) % Neut % (Auto) 60.1 (45.5-73.1) % Lymph % (Auto) 32.0 (18.3-44.2) % [place]one % (Auto) 6.3 (2.6-8.5) % Eos % (Auto) 0.9 (0-4.4) % Baso % (Auto) 0.5 (0.2-1.2) % Lymph # (Auto) 3.98 H (0.9-3.2) K/mm3 [place]one # (Auto) 0.8 H (0.1-0.6) K/mm3 Eos # (Auto) 0.1 (0-0.3) K/mm3 Baso # (Auto) 0.1 (0.0-0.1) K/mm3 Abs Immat Gran (auto) 0.03 (0.00-0.031) K/mm3 Absolute Neuts (auto) 7.5 H (1.3-6.7) K/mm3 Absolute Nucleated RBC 0.000 (0.0-0.012) K/mm3 Nucleated RBC % 0.0 (0.0-0.2) % Sodium 138 (137-145) mmol/L Potassium 4.2 (3.4-5.0) mmol/L Chloride 105 (98-107) mmol/L Carbon Dioxide 26 (22-30) mmol/L Anion Gap 7 (4-12) mmol/L BUN 18 H (7-17) mg/dL Creatinine 0.78 (0.7-1.0) mg/dL Estim Creat Clear Calc 45 ml/min Estimated GFR > 60 (59 - ) Glucose 86 (65-110) mg/dL Calcium 9.4 (8.4-10.2) mg/dL Total Bilirubin 0.4 (0.2-1.3) mg/dL AST 29 (14-36) U/L ALT 24 (6-35) U/L Alkaline Phosphatase 69 (38-126) U/L Total Protein 7.8 (6.3-8.2) g/dL Albumin 4.3 (3.5-5.1) g/dL Lipase 16 L (23-300) U/L Urine Color Yellow (Yellow) Urine Appearance Clear (Clear) Urine pH 6.0 (5.0-9.0) Ur Specific [place] 1.019 (1.001-1.035) Urine Protein Negative (Negative) mg/dL Urine Glucose (UA) Negative (Negative) mg/dL Urine Ketones Negative (Negative) mg/dL Ur Blood (Man) Negative (Negative) Urine Nitrate Negative (Negative) Urine Bilirubin Negative (Negative) Urine Urobilinogen 1.0 (<2.0) mg/dL Leukocyte Esterase Rfl Negative (Negative) ERICH/UL Imaging Data Radiologist's impression: Impressions Head CT 05/07/25 15:35 Impression: 1.No acute intracranial abnormality. Lumbar Spine CT 05/07/25 15:40 Impression: 1. Acute superior endplate fracture of L1 superimposed upon chronic compression fracture. Underlying pathologic lesion suspected. Contrast-enhanced MRI is suggested Cervical Spine CT 05/07/25 15:59 Impression: No acute abnormality. Abdomen/Pelvis CT 05/07/25 16:44 IMPRESSION: 1. No etiology to explain the patient's epigastric pain. Incidental findings above Discharge Plan Discharge Clinical Impression: Fall, Acute bilateral low back pain, Traumatic buttock pain, Microcytic anemia, Defect of endplate of vertebra Patient Disposition: [facility] Retirement/Asst Living Condition: Stable Instructions: Antibiotic Form, Narcotic Safety (ED), Fall Prevention for Older Adults (ED), Thoracolumbar Fracture (ED), Acute Low Back Pain (ED), Anemia (ED) Additional Instructions: Acute superior endplate fracture of L1 superimposed upon chronic compression fracture. Underlying pathologic lesion suspected. Contrast-enhanced MRI is suggested (neurosurgeon recommends Lumbar spine with and without contrast). Your PCP can help arrange this and, once done, can follow up with the neurosurgeon listed below. Acetaminophen/Tylenol (maximum 4000 mg per day) is safe to take with NSAIDs (ibuprofen/Motrin) for pain relief though you state acetaminophen makes you jittery (although there was acetaminophen in the Decker tablet you were given for pain today). For breakthrough pain, narcotic/opiate medication has been prescribed. Patient Language: Zambian Prescriptions: New acetaminophen 500 mg capsule 1,000 mg PO Q6H PRN (Reason: pain) Qty: 30 0RF ibuprofen 600 mg tablet 600 mg PO TID PRN (Reason: pain) Qty: 30 0RF oxycodone 5 mg tablet 5 mg PO Q8H PRN (Reason: pain) 5 Days Qty: 14 0RF (DME) back brace Misc See Rx Instructions .Route Qty: 1 0RF Rx Instructions: As directed; LSO brace for L1 endplate fracture Follow-up/Referrals: [facility] [Other] Amandeep,Serafin Olea MD [Non-Staff, Unknown] Referral Note: patient's PCP Janet,Pablo De Los Santos DO [Non-Staff, Unknown] Referral Note: alternative PCP Jennfier Fernandes MD [Physician, Neurosurgery] Referral Note: neurosurgery PHYSICIAN,ELECTRICAL ACCESSORIES II ASSEMBLER [Primary Care Provider, Internal Medicine] Stand Alone Forms: Penitentiary Discharge Time of Disposition: 17:20
[2025-05-07] MEDS: HYDROcodone/acetaminophen (*CRX) 5-325 MG TABLET 1 TAB PO (14:45)
[2025-05-07 14:55] LABS: Hematocrit 36.9 % (37.0-47.0); Hemoglobin 11.6 g/dL (12.0-15.0); Immature Granulocyte Percent A 0.2 % (0-0.5); Lymphocytes Absolute Auto 3.98 K/mm3 (0.9-3.2); Mean Corpuscular HGB Conc 31.4 g/dl (32-36); Mean Corpuscular Hemoglobin 24.3 pg (26-34); Mean Corpuscular Volume 77.2 fl (80-100); Nucleated Red Blood Cells Absolute Auto 0.000 K/mm3 (0.0-0.012); Nucleated Red Blood Cells Perc 0.0 % (0.0-0.2); Platelet Count Result 263 k/mm3 (150-375); Red Blood Count 4.78 M/mm3 (4.2-5.4); White Blood Count 12.4 K/mm3 (4.5-10.0)
[2025-05-07 15:07] LABS: Add Urine Microscopic? NO; Appearance Urine Clear (Clear); Glucose Urine UA Negative (Negative); Leukocyte Esterase Ur Negative LEU/UL (Negative); Nitrate Urine Negative (Negative); Specific Grav Ur 1.019 (1.001-1.035)
[2025-05-07 15:07] LABS: Alanine Aminotransferase 24 U/L (6-35); Albumin Level 4.3 g/dL (3.5-5.1); Alkaline Phosphatase 69 U/L (38-126); Anion Gap 7 mmol/L (4-12); Aspartate Amino Transferase 29 U/L (14-36); Bilirubin,Total 0.4 mg/dL (0.2-1.3); Blood Urea Nitrogen 18 mg/dL (7-17); Calcium 9.4 mg/dL (8.4-10.2); Carbon Dioxide 26 mmol/L (22-30); Chloride 105 mmol/L (98-107); Estimated CRCL calculation 45 ml/min; Estimated Glomerular Filt Rate > 60; Glucose 86 mg/dL (65-110); Lipase 16 U/L (23-300); Potassium 4.2 mmol/L (3.4-5.0); Sodium 138 mmol/L (137-145); Total Protein 7.8 g/dL (6.3-8.2)
[2025-05-07 17:41] VITALS: BP 132/84; PULSE 78; RESP 16; O2SAT 98
== END 2025-05-07 17:42 ==
PROVIDERS: Emergency Provider Student in an Organized Health Care Education/Training Program
DX: M54.50 Low back pain, unspecified (principal); Q76.49 Other congenital malformations of spine, not associated with scoliosis; D64.9 Anemia, unspecified; E78.5 Hyperlipidemia, unspecified; E11.9 Type 2 diabetes mellitus without complications; I10 Essential (primary) hypertension; W01.0XXA Fall on same level from slipping, tripping and stumbling without subsequent striking against object, initial encounter
CPT/HCPCS: 36415; 70450; 72125; 72131; 74176; 80053; 81003; 83690; 85025; 99284; A9270

== ENCOUNTER 2025-05-08 02:44 | Emergency (ER) | payer MEDICARE, SELFPAY ==
[2025-05-08 02:50] VITALS: BP 133/72; PULSE 94; RESP 20; TEMP 36.7; O2SAT 97
--- NOTE | 2025-05-08 05:30 | ED_ITS ---
HPI - Back Pain/Injury General Chief Complaint: Fall Stated Complaint: LOW BACK PAIN S/P SLID OFF OF BED Time Seen by Provider: 05/08/25 05:15 History of Present Illness HPI Narrative: Patient is a 75-year-old female who presents emergency department this evening from local [facility] status post a ground level fall. Patient rolled out of bed for 2nd time. Patient was seen at our facility yesterday for the same issue and at that time she was complaining of lower back pain and had a CTs of her cervical and lumbar spine along with a CT abdomen and pelvis with IV contrast revealing an acute L1 superior endplate fracture superimposed on a chronic compression fracture otherwise no acute process. Patient was discharged home with neurosurgery follow-up, plan for an LSO brace and pain medications. Daughter who is present at bedside with the patient states that she feels as though her mother fell again because they did not give her her scheduled Oxy. Patient herself will not tell the [facility] that she is in pain as she does not want any narcotics, she is concerned that she is going to get addicted to these narcotics. Daughter states that she is trying to explain to the patient that she has a reason to take these medications and taking them for short period time will not cause any addiction. Patient herself states that the symptoms today are the same symptoms since yesterday, she confirms that her back pain right now is not worse than what it was yesterday and denies any additional injuries, she is moving all 4 extremities spontaneously. Related Data Allergies Allergy/AdvReac Type Severity Reaction Status Date / Time codeine Allergy Unknown TIGHT Verified 05/07/25 12:18 FEELING IN CHEST Review of Systems Review of Systems: All systems are reviewed and are negative unless stated otherwise in the HPI. 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 HEENT: PERRL, no rhinorrhea, no post nasal drip, oropharynx clear. Neck: Trachea midline, no JVD, no lymphadenopathy, no midline cervical spine tenderness palpation. Cardiovascular: Regular rate and rhythm, no murmurs, rubs or gallops, no peripheral edema. Respiratory: Clear to auscultation bilaterally, no tachypnea, no wheezing, no rhonchi, no rubs, no respiratory distress. Abdomen: Soft, nontender, nondistended, no rebound, no guarding, no peritoneal signs. Musculoskeletal: No joint swelling or deformity, normal muscle tone. Back: No midline reproducible tenderness palpation over the thoracic or lumbar spine. Skin: No rashes or petechia, no signs of infection. Psychiatric: Alert and oriented, normal behavior and judgment for situation. Neurological: Alert and oriented to person, place, and time. Follows all commands. No focal deficits, speech is clear and fluent. Course Vital Signs Vital signs: Vital Signs Temperature 98.1 F 05/08/25 02:50 Pulse Rate 94 05/08/25 02:50 Respiratory Rate 20 05/08/25 02:50 Blood Pressure 133/72 05/08/25 02:50 Pulse Oximetry 97 05/08/25 02:50 Temperature 98.1 F 05/08/25 02:50 Pulse Rate 94 05/08/25 02:50 Respiratory Rate 20 05/08/25 02:50 Blood Pressure 133/72 05/08/25 02:50 Pulse Oximetry 97 05/08/25 02:50 MDM - Back Pain/Injury MDM Narrative Medical decision making narrative: The patient was evaluated by myself in the emergency department. History is obtained from patient who is an independent historian and physical exam was performed. External medical records were reviewed at this time. At this time, did have an extended discussion with the patient and family member daughter present at bedside. Giving my benign exam and patient stating that her symptoms are the same as they were before she fell again today, did not recommend any additional imaging and daughter is in agreement. Daughter feels as though if patient had her pain medication this were not of happened. She states that they are all set to call the [facility] on [facility] to get the patient set up for an LSO brace and patient will follow-up with neurosurgery for an MRI of her lower back. Differential diagnosis considerations include musculoskeletal strain, fractures/dislocations. Comorbidities impacting this visit include known L1 fracture. I have evaluated and discussed social determinants of health with the patient that could potentially impact subsequent diagnosis and treatment plans. On repeat assessment of the patient, reevaluation revealed that the patient is doing well and is in no acute distress. Patient symptoms have improved since she arrived to our emergency department. Repeat vital signs were all reviewed and noted to be stable. Differential diagnosis and treatment plan were discussed with the patient at bedside. Patient agrees with discussion and after shared medical decision making agrees with discharge. All questions were answered to the patient's satisfaction. Patient will follow up with Neurosurgery in 3-5 days. Patient was provided with strict return precautions and instructed to return to the emergency department if any new or worsening symptoms develop. The patient was discharged in stable condition. Discharge Plan Discharge Clinical Impression: Fall from ground level, Compression fx, lumbar spine Patient Disposition: SNF Condition: Improved Instructions: Fall Prevention for Older Adults (ED), Back Pain (ED) Additional Instructions: Please follow-up with neurosurgery as instructed within the next 3-5 days. Make sure you call on Friday to receive your LSO brace for your known L spine fracture. Return to the ED if any new or worsening symptoms develop. Patient Language: Japanese Prescriptions: No Action acetaminophen 500 mg capsule 1,000 mg PO Q6H PRN (Reason: pain) Qty: 30 0RF ibuprofen 600 mg tablet 600 mg PO TID PRN (Reason: pain) Qty: 30 0RF oxycodone 5 mg tablet 5 mg PO Q8H PRN (Reason: pain) 5 Days Qty: 14 0RF (DME) back brace Misc See Rx Instructions .Route Qty: 1 0RF Rx Instructions: As directed; LSO brace for L1 endplate fracture Follow-up/Referrals: Jennifer Fernandes MD [Physician, Neurosurgery] - 3 Days PHYSICIAN,MANAGED CARE ANALYST [Primary Care Provider, Internal Medicine] Time of Disposition: 05:29
[2025-05-08] MEDS: oxyCODONE/ACETAMINOPHEN (*CRX) 5-325 MG TABLET 1 TABLET PO (05:34)
[2025-05-08 05:51] VITALS: BP 146/89; PULSE 76; RESP 18; O2SAT 99
== END 2025-05-08 05:52 ==
LOC: ANHED 05:36
PROVIDERS: Emergency Provider Emergency Medicine
DX: S32.010A Wedge compression fracture of first lumbar vertebra, initial encounter for closed fracture (principal); E78.5 Hyperlipidemia, unspecified; E11.9 Type 2 diabetes mellitus without complications; I10 Essential (primary) hypertension; W06.XXXA Fall from bed, initial encounter
CPT/HCPCS: 99282; A9270